=== PATIENT | male | born 1955 | race Caucasian/White ===

== ENCOUNTER → 2021-04-22 | Outpatient (CLI) | payer BC ==
[~2021-04-22] MED LIST: LISINOPRIL10 MG PO; LOPID600 MG PO; METFORMIN HCL500 MG PO
== END ==
LOC: SJCVCIMAG 02-25 06:18
PROVIDERS: ATTEND Internal Medicine
DX: R00.0 Tachycardia, unspecified (principal); I10 Essential (primary) hypertension; E78.5 Hyperlipidemia, unspecified; E11.9 Type 2 diabetes mellitus without complications; I73.9 Peripheral vascular disease, unspecified